=== PATIENT | female | born 1985 | race African-American/Black ===

== ENCOUNTER 2017-12-22 13:35 | Inpatient (IN) | payer OTHER ==
[2017-12-22 14:26] VITALS: BMI 29.0
[2017-12-22] MEDS ORDERED: ELECTROLYTE-148 SOLN 500 ML IV ONE ×2 (15:00→15:30)
[2017-12-22] MEDS ORDERED: CITRIC ACID/SODIUM CITRATE 30 ML UNIT-DOSE CUP PO ONE (15:00)
--- NOTE | 2017-12-22 15:14 | HP ---
Past Medical History - Primary Care Physician PCP:: Raj Betancourt - Admission Chief Complaint: 32yo P1 with at EGA 40w0d admitted for repeat C/S and possible ovarian cystectomy. 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: Alzheimer's, CVA, Dementia, Migraine, Multiple Sclerosis, Peripheral Neuropathy, Parkinson's, Seizure, Syncope, TIA, Vertigo, Other Cardiovascular: No: AFIB, Aneurysm, Aortic Insufficiency, Aortic Stenosis, CAD, CHF, Deep Vein Thrombosis, HTN, Hyperlipdemia, HI, Mitral Insufficiency, Mitral Stenosis, Murmur, Pulmonary Hypertension, Other Pulmonary: No: Asthma, Bronchitis, Cancer, COPD, O2 Dependent, Pneumonia, Previously Intubated, Pulmonary Embolus, Pulmonary Fibrosis, Sleep Apnea, Other Gastrointestinal: No: Ascites, Cancer, Constipation, Crohn's Disease, Diverticulitis, Diverticulosis, Esophageal Varices, Gastritis, GERD, GI Bleed, Hemorrhoids, Hiatal Hernia, Inflamatory Bowel Disease, Irritable Bowel Disease, Pancreatitis, Peptic Ulcer Disease, Ulcerative Colitis, Other Hepatobiliary: No: Cirrhosis, Cholelithiasis, Cholecystitis, Choledocholithiasis , Hepatitis A, Hepatitis B, Hepatitis C, Other Renal/: No: Renal Failure, Renal Inusuff, BPH, Cancer, Hematuria, Hemodialysis , Neurogenic Bladder, Renal Calculi, UTI, Other Reproductive: Yes: Fibroids ...: 2 ...Para: 1 ...Term: 1 ...LMP: 03/12/17 ... Weeks Gestation by Dates: 40.5 ...EDC by Dates: 12/17/17 Heme/Onc: No: Anemia, B12 Deficiency, Bleeding Disorder, Cancer, Current Chemotherapy, Current Radiation Therapy, Hemochromatosis, Hypercoaguable State, Myeloproliferative Synd, Sickle Cell Disease, Sickle Cell Trait, Thrombocytopenia, Other Infectious Disease: No: AIDS, C-Diff, Herpes Zoster, HIV, MRSA, STD's, Tuberculosis, VREF, Other Psych: No: Addictions, Anxiety, Bipolar, Depression, Panic, Psychosis, Schizophrenia, Other Musculoskeletal: No: Bursitis, Chronic low back pain, Hemiparesis, Hemiplegia, Osteoarthritis, Paraplegia, Other Rheumatology: Yes: Other (hx of Sjogren syndrome) ENT: No: Allergic Rhinitis, Sinusitis, Other Endocrine: No: Bradley's Disease, Kayli's Disease, Diabetes Insipidus, Diabetes Mellitus, Hyperparathyroidism, Hyperthyroidism, Hypothyroidism, Osteopenia, SIADH, Other Dermatology: No: Basal Cell, Cellulitis, Eczema, Melanoma, Psoriasis, Squamous Cell, Other - Past Surgical History Past Surgical History: Yes: None, Hx Myomectomy: No Hx Transabdominal Cerclage: No - Smoking History Smoking history: Never smoked Have you smoked in the past 12 months: No - Alcohol/Substance Use Hx Alcohol Use: No History of Substance Use: reports: None - Social History Usual Living Arrangement: Yes: With Spouse, With Child ADL: Independent Occupation: Pharmacy History of Recent Travel: No Home Medications - Allergies Allergies/Adverse Reactions: Allergies Allergy/AdvReac Type Severity Reaction Status Date / Time almond Allergy Severe Swelling Verified 12/22/17 13:57 pineapple Allergy Severe Itching Verified 12/22/17 13:57 No Known Drug Allergies Allergy Verified 12/22/17 14:44 - Home Medications Home Medications: Ambulatory Orders Tablet 1 tablet PO DAILY 02/07/15 Family Disease History - Family Disease History Family Disease History: Other: Father (HTN), Mother (renal stones) Review of Systems - Review of Systems Constitutional: reports: No Symptoms Eyes: reports: No Symptoms HENT: reports: No Symptoms Neck: reports: No Symptoms Cardiovascular: reports: No Symptoms Respiratory: reports: No Symptoms Gastrointestinal: reports: No Symptoms Genitourinary: reports: No Symptoms Breasts: reports: No Symptoms Reported Musculoskeletal: reports: No Symptoms Integumentary: reports: No Symptoms Neurological: reports: No Symptoms Endocrine: reports: No Symptoms Hematology/Lymphatic: reports: No Symptoms Psychiatric: reports: No Symptoms Pain Intensity: 0 Physical Exam - Maternity Vital Signs: Vital Signs Temperature 99.1 F 12/22/17 14:19 Pulse Rate 82 12/22/17 14:19 Respiratory Rate 20 12/22/17 14:19 Blood Pressure 118/74 12/22/17 14:19 O2 Sat by Pulse Oximetry (%) Constitutional: Yes: Well Nourished, No Distress, Calm Eyes: Yes: WNL, Conjunctiva Clear, EOM Intact HENT: Yes: WNL, Atraumatic, Normocephalic Neck: Yes: WNL, Supple, Trachea Midline Cardiovascular: Yes: WNL, Regular Rate and Rhythm Lungs: Clear to auscultation, Normal air movement Breast(s): Yes: WNL - Abdominal Exam/OB Fundal Height: 40 Number of Fetuses: Single Presentation: Vertex Contractions: No Heart Rate (range): 150 Heart Rate Location: Midline Category: I Accelerations: None Decelerations: None - Vaginal Exam/OB Vaginal Bleediing: No Amniotic Membrane Status: Intact Presentation: Vertex/Position - Physical Exam Musculoskeletal: Yes: WNL Extremities: Yes: WNL Edema: No Integumentary: Yes: WNL Deep Tendon Reflex Grade: Normal +2 ...Motor Strength: WNL Psychiatric: Yes: WNL, Alert, Oriented Hemorrhage Risk Assessment - Risk Factors Medium Risk Factors: Yes: Prior , uterine surgery,or multiple laparotomies High Risk Factors: Yes: None Risk Score: 1 Risk Level: Medium Risk Imaging - Results Ultrasound: Report Reviewed Assessment/Plan 32yo P1 with at EGA 40w0d admitted for repeat C/S and possible ovarian cystectomy. We discussed the risks and benefits of C/S at length, including but not limited to scarring, pain, bleeding, infection, injury to underlying organs and structures, need for additional surgery to repair/treat any problems or complications, complications/injuries, etc. The pt verbalized her understanding and requested to proceed with surgery. The pt is aware that all surgeries have risks and no guarantees can be provided.
[2017-12-22] MEDS ORDERED: ONDANSETRON 4 MG/2 ML VIAL IVPUSH PRN (15:55)
[2017-12-22] MEDS ORDERED: morphine SULFATE/Preservative Free 0.5 MG/ML (1cc Syringe) ONE (16:12)
[2017-12-22] MEDS ORDERED: ePHEDrine SULFATE 50 MG/1 ML AMPULE ONE (16:13)
[2017-12-22] MEDS ORDERED: ceFAZolin SODIUM 1 GM VIAL ONE (16:31)
[2017-12-22] MEDS ORDERED: OXYTOCIN 10 UNITS/ML VIAL ONE (16:47)
[2017-12-22] MEDS ORDERED: METHYLERGONOVINE MALEATE 0.2 MG/1 ML AMP IM PRN (18:11)
[2017-12-22] MEDS ORDERED: IBUPROFEN 800 MG/8 ML IJ IVPB PRN (18:11)
--- NOTE | 2017-12-22 18:21 | OP ---
Operative Note - Note: Operative Date: 12/22/17 Pre-Operative Diagnosis: at EGA 40 1/7 wk with prior C/S. Left adnexal mass Operation: Repeat LT C/S. left ovarian cystectomy Findings: 1. Very thin low uterine segment c/w "window" 2. Multiple prominent dilated veins at the dome of the bladder 3. Live baby girl in vtx presentation. No meconium in amniotic fluid. 9/9. 4. 5cm "chocolate" left ovarian cyst, 5. Normal right ovary and remaining left ovary 6. 2-3 small uterine myomas Post-Operative Diagnosis: Same as Pre-op Surgeon: Raj Betancourt Transmitter Engineer In Charge: Candelaria Mota Anesthesiologist/ENGINE TESTING SUPERVISOR: Carissa Castor Anesthesia: Spinal Specimens Removed: Placenta. Left ovarian cyst Estimated Blood Loss (mls): 700 Drains & Tubes with Location: Lim cath Drains, Volume Out (mls): 200 Blood Volume Replaced (mls): 0 Fluid Volume Replaced (mls): 1,800 Operative Report Dictated: Yes
[2017-12-22] MEDS: OXYTOCIN 20 UNITS in 0.9% NS 20 UNIT/1,000 ML INFUS.BAG IV SCH (19:35)
[2017-12-22] MEDS ORDERED: OXYTOCIN 20 UNITS in 0.9% NS 20 UNIT/1,000 ML INFUS.BAG IV ONE (19:39)
--- NOTE | 2017-12-22 21:47 | OP ---
DATE OF OPERATION: 12/22/2017 PREOPERATIVE DIAGNOSES: at estimated gestational age of 40 weeks and 1 day with previous section, left adnexal mass. POSTOPERATIVE DIAGNOSES: at estimated gestational age of 40 weeks and 1 day with previous section, left adnexal mass. PROCEDURE: Repeat low transverse section, left ovarian cystectomy. SURGEON: Raj Betancourt MD INFORMATION SYSTEMS SECURITY DEVELOPER: Candelaria Mota MD ANESTHESIOLOGIST: Carissa Castro DO ANESTHESIA: Spinal. COMPLICATIONS: None. ESTIMATED BLOOD LOSS: 700 mL URINE OUTPUT: Clear urine 200 mL at the end of the procedure. INTRAVENOUS FLUIDS: 1800 mL PATHOLOGY: Placenta and left ovarian "chocolate" cyst. FINDINGS: A very thin lower uterine segment was noted consistent with "window." Multiple prominent dilated veins were also observed at the dome of the bladder. A live baby girl in vertex presentation. No meconium in amniotic fluid. Apgars are 9 and 9. A 5-cm "chocolate" left ovarian cyst and normal right ovary and a normal remaining left ovary. Two or 3 small uterine fibroids. DESCRIPTION OF PROCEDURE: The patient was met preoperatively. Risks, benefits, and alternatives of section were discussed. All questions were answered. The patient expressed her understanding and requested to proceed with surgery. The patient was brought to the OR with the IV running. She was placed on the surgical table in the sitting position. The spinal anesthesia was achieved without difficulty. The patient was then placed in a supine position with a leftward tilt. She was prepped and draped in the usual sterile fashion. A Lim catheter was inserted and left to drain to gravity. The surgeons then proceeded with the operation. A Pfannenstiel skin incision was made along the prior scar. The previous Pfannenstiel scar was noted to be hypertrophic and was excised. The incision was then taken down to the level of fascia. The fascia was incised in the midline, and the incision was extended bilaterally. The superior edge of the fascial incision was then dissected cephalad, and the fascia was from the underlying rectus muscles. The inferior edge of the fascial incision was also dissected, and the fascia was from the underlying rectus muscles. The rectus muscles were in the midline. The peritoneum was identified and entered sharply. The peritoneal incision was extended superiorly and inferiorly using Metzenbaum scissors. A very thin lower uterine segment was observed, consistent with "window." The bladder peritoneum was then dissected away from the lower uterine segment. Multiple prominent and dilated veins were noted at the dome of the bladder. The lower uterine segment was then incised transversely. The incision was extended bilaterally using bandage scissors. The baby was delivered from vertex presentation without complications. The baby is crying spontaneously. The umbilical cord was clamped and cut. The baby was handed to the waiting dental services director. The placenta was delivered manually and without complications. The uterus was cleared of all clots and debris. The uterine incision was then repaired using a 0 Biosyn suture with a running locking stitch with good hemostasis. The uterine incision was then imbricated using a 0 Biosyn suture. Good hemostasis was noted. At that point, the left ovary was found and noted to contain a large "chocolate" ovarian cyst. The left ovarian cyst was excised and sent to Pathology. Good hemostasis was noted. The remaining left ovary was noted to be normal. The right ovary was also visualized and was noted to be normal. Survey of the uterus revealed several small uterine fibroids. Once again, survey of the uterine incision noted good hemostasis. Copious irrigation of the operative site was then performed. Once the irrigation was aspirated, good hemostasis was confirmed. The abdominal peritoneum was then closed using a 2-0 chromic suture. The rectus muscles were also approximated using several interrupted 2-0 chromic sutures. The fascia was closed using a 0 Vicryl suture with good hemostasis and approximation. The subcutaneous adipose tissues were also approximated using several interrupted 0 Vicryl sutures to close the space. The skin was approximated using a 4-0 Vicryl suture with a subcutaneous stitch. Sponge, lap, and instrument counts were correct. The patient tolerated the procedure well and was transferred to recovery room in stable condition and awake. Siddhartha [id number]
--- NOTE | 2017-12-23 00:58 | PN ---
Post Progress Note - Subjective Subjective: Patient without acute complaints. Tolerating clears, without nausea or vomiting No voiding, connors in place draining clear fluid No ambulation or flatus yet. Denies fevers or chills. Pain well controlled. Post Day: 1 Type of Delivery: Repeat C/S Vital Signs: Vital Signs Temperature 98.7 F 12/22/17 22:00 Pulse Rate 89 12/22/17 22:00 Respiratory Rate 18 12/22/17 23:00 Blood Pressure 116/64 12/22/17 22:00 O2 Sat by Pulse Oximetry (%) 98 12/22/17 22:00 Breast Exam: Yes: Soft Uterus: Yes: Fundus Firm, Fundus below umbilicus Incision: Yes: Dressing dry and intact Abdomen/GI: Yes: Abdomen soft, Tender (mild), Passing flatus, Tolerating PO. No : Abdominal Distention Lochia: Yes: Serosa Lochia, amount: Small Extremities: Yes: Calves non-tender, Edema (+1) Assessment/Plan 32 yo POD # 1 s/p R CD + L ovarian cystectomy, afebrile, vital signs stable, doing well 1. Continue routine postoperative care. 2. AM CBC without signs of anemia 3. Rh positive status, no rhogam indicated. 4. Encourage ambulation and incentive spirometer use 5. Continue oral pain medication 6. Anticipate discharge home postoperative day #3 or #4
[2017-12-23] MEDS: OXYTOCIN 20 UNITS in 0.9% NS 20 UNIT/1,000 ML INFUS.BAG IV SCH ×3 (02:51→20:42)
[2017-12-23 08:33] LABS: BASO % 0.2 % (0-2.0); EOS % 0.3 % (0-4.5); HEMATOCRIT 32.7 % (32.4-45.2); HEMOGLOBIN 10.7 GM/dL (10.7-15.3); MCH 26.7 pg (25.7-33.7); MCHC 32.8 g/dl (32.0-36.0); MEAN CELL VOLUME 81.5 fl (80-96); MEAN PLT VOLUME 9.6 fl (7.5-11.1); MONO % 10.3 % (3.8-10.2); NEUT % 72.2 % (42.8-82.8); PLATELET COUNT 126 K/MM3 (134-434); RBC 4.01 M/mm3 (3.60-5.2); RDW 16.4 % (11.6-15.6)
[2017-12-23] MEDS: PRENATAL VITAMINS W/ FOLIC ACID TABLET (FP) PO SCH (10:03)
[2017-12-23] MEDS: SIMETHICONE 80 MG TAB.CHEW (FP) PO PRN ×2 (10:03→19:53)
[2017-12-23] MEDS ORDERED: DIPHTH,PERTUSS(ACELL),TET 0.5 ML DISP.SYRIN IM ONE (12:00)
--- NOTE | 2017-12-23 13:33 | PN ---
Progress Note (short form) - Note Progress Note: Anesthesia POD#1 S/P Repeat under Spinal anesthesia VSS,no nausea now,itch subsided,pain is under control. Khushbu Conner MD.
[2017-12-23] MEDS ORDERED: BISACODYL 10 MG SUPP.RECT RC PRN (18:11)
[2017-12-23] MEDS: SENNOSIDES/DOCUSATE COMBO (SENNA PLUS) TABLET (UD) PO PRN (19:53)
[2017-12-23] MEDS: IBUPROFEN 600 MG TABLET (FP) PO PRN (19:53)
[2017-12-23] MEDS: oxyCODONE HCL 5 MG TABLET PO PRN (19:54)
[2017-12-24] MEDS: SIMETHICONE 80 MG TAB.CHEW (FP) PO PRN ×2 (05:15→17:28)
[2017-12-24] MEDS: oxyCODONE HCL 5 MG TABLET PO PRN (05:15)
[2017-12-24] MEDS: IBUPROFEN 600 MG TABLET (FP) PO PRN ×2 (05:15→17:28)
--- NOTE | 2017-12-24 07:32 | PN ---
Progress Note (short form) - Note Progress Note: pod 2doing well, tolorating diet, passing gas CBC, BMP 12/23/17 07:45 Last Vital Signs Temp Pulse Resp BP Pulse Ox 98.0 F 91 H 18 119/76 100 12/23/17 21:25 12/23/17 21:25 12/23/17 21:25 12/23/17 21:25 12/23/17 22:00 abdomen soft, no distension, no cva incision dry, clean no calf tenderness lochia mild plan ambulate , cbc in am
[2017-12-24] MEDS: PRENATAL VITAMINS W/ FOLIC ACID TABLET (FP) PO SCH (09:25)
[2017-12-24] MEDS: SENNOSIDES/DOCUSATE COMBO (SENNA PLUS) TABLET (UD) PO PRN (21:56)
[2017-12-25] MEDS: IBUPROFEN 600 MG TABLET (FP) PO PRN ×2 (05:23→11:42)
--- NOTE | 2017-12-25 08:21 | DS ---
Physical Exam-CLINICAL MENTAL HEALTH COUNSELOR Vital Signs: Vital Signs Temperature 98.6 F 12/24/17 22:00 Pulse Rate 84 12/24/17 22:00 Respiratory Rate 18 12/24/17 22:00 Blood Pressure 100/62 12/24/17 22:00 O2 Sat by Pulse Oximetry (%) 100 12/23/17 22:00 Constitutional: Yes: Well Nourished, No Distress, Calm Eyes: Yes: WNL, Conjunctiva Clear, EOM Intact HENT: Yes: WNL, Atraumatic, Normocephalic Neck: Yes: WNL, Supple, Trachea Midline Cardiovascular: Yes: WNL, Regular Rate and Rhythm Respiratory: Yes: WNL, Regular, CTA Bilaterally Gastrointestinal: Yes: WNL ...Rectal Exam: Yes: WNL Renal/: Yes: WNL ....Post : Yes: Uterus firm, Uterus non-tender, Slight lochia rubra Breast(s): Yes: WNL Musculoskeletal: Yes: WNL Extremities: Yes: WNL Integumentary: Yes: WNL Wound/Incision: Yes: Clean/Dry, Well Approximated, Sutures Intact Neurological: Yes: WNL, Alert, Oriented ...Motor Strength: WNL Psychiatric: Yes: WNL, Alert, Oriented Delivery - Delivery Section: Repeat, Low Flap Transverse Type of Anesthesia: Spinal Episiotomy/Laceration: None EBL (cc): 700 Delivery, Single - Stages of Labor Date of Delivery: 12/22/17 Time of Delivery: 16:56 Time Placenta Delivered: 16:57 Placenta: Yes: Expressed - Condition of Casey Saw Operator/Office Machine Servicer Present: Yes Name: Gayla Albert Infant Gender: Female Weight: 6 lb 5 oz Position: Right, OT Total Hours ROM (Hrs/Mins): 3 mins - 1 Minute Total Score: 9 5 Minutes Total Score: 9 - [place] Feeding Plan Initial Plan: Exclusive throughout hospitalization Discharge Summary Reason For Visit: Hospital Course: no complication - Instructions - Home Medications Comprehensive Discharge Medication List: Ambulatory Orders Tablet 1 tablet PO DAILY 02/07/15
[2017-12-25 08:28] LABS: BASO % 0.5 % (0-2.0); EOS % 1.8 % (0-4.5); HEMATOCRIT 31.4 % (32.4-45.2); HEMOGLOBIN 10.6 GM/dL (10.7-15.3); LYMPH % 24.9 % (8-40); MCH 27.1 pg (25.7-33.7); MCHC 33.7 g/dl (32.0-36.0); MEAN CELL VOLUME 80.3 fl (80-96); MONO % 11.2 % (3.8-10.2); NEUT % 61.6 % (42.8-82.8); PLATELET COUNT 134 K/MM3 (134-434); RBC 3.91 M/mm3 (3.60-5.2); RDW 16.4 % (11.6-15.6); WHITE BLOOD COUNT 4.4 K/mm3 (4.0-10.0)
[2017-12-25 08:37] VITALS: BP 108/59; PULSE 76; TEMP 98.2
[2017-12-25] MEDS: PRENATAL VITAMINS W/ FOLIC ACID TABLET (FP) PO SCH (11:43)
[2017-12-25] MEDS: SIMETHICONE 80 MG TAB.CHEW (FP) PO PRN (11:43)
--- NOTE | 2018-01-03 16:27 | PATH ---
Surgical Pathology Report Patient Name: LOLA OGLESBY [facility]. Rec. #: [id number] /Age/Gender: 1985 (Age: 32) / F Account: [id number] Location: [facility] OBS/STOCK SHAPER Taken: 12/22/2017 Received: 12/23/2017 Reported: 01/03/2018 Physicians: Raj Betancourt M.D. Specimen(s) Received A: PLACENTA B: RIGHT OVARIAN CYST Clinical History Repeat 40.5 weeks gestation, history of sickle cell trait Final Diagnosis A. PLACENTA, SECTION: 464 G THIRD TRIMESTER PLACENTA WITH TRIVASCULAR UMBILICAL CORD AND UNREMARKABLE PLACENTAL MEMBRANES. B. OVARIAN CYST, CYSTECTOMY: ENDOMETRIOTIC CYST. SEE COMMENT. Comment: Immunohistochemical stains performed at [place], [place] ([id number]) and interpreted at [facility] show the endometrial stroma is highlighted by CD10. Electronically Signed Becky Hill M.D. Gross Description A. The specimen is received fresh labeled placenta and is a 464 gram, 15.0 x 13.5 x 2.8 cm. placenta with attached membranes and umbilical cord. The attached membranes are jacobo, translucent with focal opacities and insert marginally. The umbilical cord measures 21 cm. in length and averages 1 cm. in diameter. The cord inserts eccentrically, 2.5 cm. to the nearest margin. No true knots or strictures are identified. Cut surface of the umbilical cord reveals 3 vessels. The surface is hurtado-blue with minimal fibrin deposition and appropriate caliber vessels. The maternal surface is red-brown and intact. Sectioning reveals red-brown, spongy parenchyma. No lesions are identified. Assistant Oceanographer sections are submitted in three cassettes as follows: 1- membrane rolls and umbilical cord; 2-3- full thickness sections of placenta. B. Received in formalin labeled "left ovarian cyst" and is a 3.5 x 1.5 x 1.0 cm brown, hemorrhagic portion of soft tissue, possibly consistent with a disrupted cyst. Sectioning reveals brown, hemorrhagic parenchyma. Assistant Oceanographer sections are submitted in one cassette. 12/30/2017
== END 2017-12-25 12:55 | disposition home or self-care (01) | DRG 766 ==
LOC: JLDR 13:35 → J3W 19:55
PROVIDERS: ADMIT Obstetrics & Gynecology; ATTEND Obstetrics & Gynecology
PROC: 10D00Z1 Extraction of Products of Conception, Low, Open Approach (ICD-10-PCS; principal; 2017-12-22)
PROC: 0UB10ZZ Excision of Left Ovary, Open Approach (ICD-10-PCS; 2017-12-22)
DX: O34.211 Maternal care for low transverse scar from previous cesarean delivery (principal); N85.8 Other specified noninflammatory disorders of uterus; O34.13 Maternal care for benign tumor of corpus uteri, third trimester; D25.9 Leiomyoma of uterus, unspecified; O34.83 Maternal care for other abnormalities of pelvic organs, third trimester; N83.202 Unspecified ovarian cyst, left side; O48.0 Post-term pregnancy; Z3A.40 40 weeks gestation of pregnancy; Z37.0 Single live birth
CPT/HCPCS: 36415; 85025; 88304-TC; 88307-TC; 90715; 94010